=== PATIENT | male | born 1965 | race Caucasian/White ===

== ENCOUNTER 2022-06-04 16:24 | Outpatient (CLI) | payer OTHER, SELFPAY ==
[2022-06-04 19:53] LABS: Total Triiodothyronine (T3) 1.21 NG/ML (0.97-1.69)
== END 2022-06-04 16:25 | disposition home or self-care (01) ==
LOC: ANHGOSHLAB 16:25
PROVIDERS: PCP Family Medicine; Visit Provider Physician Assistant
DX: R79.89 Other specified abnormal findings of blood chemistry (principal)
CPT/HCPCS: 36415; 84436; 84480

== ENCOUNTER 2022-11-12 05:52 | Day surgery (SDC) | payer OTHER, SELFPAY ==
[2022-09-12 10:18] VITALS: BMI 25.5
[2022-10-30 10:55] VITALS: BMI 25.4
--- NOTE | 2022-10-30 11:10 | PC.NURSE ---
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 OFFERED FOR PT TO CALL BACK. PT REFUSED. PT ALSO DIDNT WRITE DOWN INSTRUCTIONS. OFFERED AGAIN TO CALL BACK, PT REFUSED. STATED HE WOULD REMEMBER VERBAL INSTRUCTIONS. ASKED PT IF HE RECEIVED COLON PREP INSTRUCTIONS FROM DR BRAR. PT SAID NO. INSTRUCTED PT TO CALL DR BRAR OFFICE TODAY FOR PREP INSTRUCTIONS. PT VERBALIZED UNDERSTANDING.
--- NOTE | 2022-11-09 11:56 | PM.HPGS ---
History of Present Illness History of Present Illness Consent: Risks, benefits, and alternatives have been discussed and questions answered. Patient agrees to proceed with procedure. Chief complaint: Neoplasm Screening Narrative: Chidi Ash is a 56 year old male who was referred for colonoscopy for screening. Review of Systems Review of Systems: All systems reviewed & are unremarkable except as noted in HPI and below PMFSH Social History Social History Smoking status: Never smoker Alcohol intake: unknown Substance use: unknown Living arrangements: alone Spiritual care concerns: No Meds Home Medications and Allergies Home Medications Medication Instructions Recorded Confirmed Type epinephrine 0.3 mg/0.3 mL 0.3 mg (0.3 mL) IM ONCE #2 ea 06/04/22 11/12/22 Rx injection, auto-injector (EpiPen 2-Liban) omeprazole 20 mg capsule,delayed 20 mg PO DAILY 10/30/22 11/12/22 History release Allergies Allergy/AdvReac Type Severity Reaction Status Date / Time BEE STINGS Allergy Mild HIVES, Uncoded 11/12/22 06:18 ANAPHYLAXIS Exam Const: General: alert Orientation/consciousness: patient oriented x3 Resp: Auscultation: clear to auscultation bilaterally Cardio: Rhythm: regular rhythm GI: GI Palp: Yes Soft to palpation and No Tenderness to palpation present (GI) Neuro: General: patient oriented x3 Assessment and Plan Assessment and plan (1) Colon cancer screening: Code(s): Z12.11 - Encounter for screening for malignant neoplasm of colon Status: Acute Assessment and Plan: Colonoscopy with possible biopsy or polypectomy or cautery or injection of substances.
[2022-11-12 06:10] VITALS: BP 158/109; PULSE 79; RESP 20; TEMP 36.8; O2SAT 100
[2022-11-12] MEDS: LACTATED RINGERS 1,000 ML 150 ML IV CONT (06:20)
--- NOTE | 2022-11-12 07:25 | P.PNAN_ITS ---
Anes - Initial Pre Proc Eval Procedure: Operation Date: 11/12/22 07:30 Proposed Procedures p Screening Colonoscopy - Kleber Robledo MD Date/Time: 11/12/22 07:25 Surgeon: Kleber Robledo MD Pre Op Diagnosis: Neoplasm Screening Patient Data Age: 56 Gender: M Height: 1.75 m Weight: 76.1 kg Allergies Allergy/AdvReac Type Severity Reaction Status Date / Time BEE STINGS Allergy Mild HIVES, Uncoded 11/12/22 06:18 ANAPHYLAXIS Home Medications Medication Instructions Recorded Confirmed Type epinephrine 0.3 mg/0.3 mL 0.3 mg (0.3 mL) IM ONCE #2 ea 06/04/22 11/12/22 Rx injection, auto-injector (EpiPen 2-Liban) omeprazole 20 mg capsule,delayed 20 mg PO DAILY 10/30/22 11/12/22 History release Patient hx anesthesia problems: none Family hx anesthesia problems: none Results Review: All pre-operative results and documents have been reviewed as part of the pre- operative evaluation. [facility] Social History Social History Smoking status: Never smoker Alcohol intake: unknown Substance use: unknown Living arrangements: alone Spiritual care concerns: No Anes - Eval Final PreProcedure Day of Procedure 11/12/22 07:25 Patient weight: normal Heart: regular rate and rhythm Lungs: clear to auscultation Airway: Mallampati scale class II Neurological: alert and oriented Last oral intake: >/= 8 hours ASA classification: II Emergent: no Anesthetic plan: proceed Anesthesia type and monitoring: general GIVS and standard monitoring Results Review: All pre-operative results and documents have been reviewed as part of the pre- operative evaluation. Informed Consent: The patient's anesthetic plan and its attendant risks and benefits were discussed with the patient/family/POA. Questions were solicited and answers provided to the satisfaction of the patient/family/POA.
[2022-11-12 07:49] VITALS: BP 132/99; PULSE 66; RESP 14; O2SAT 98
[2022-11-12 07:59] VITALS: BP 130/109; PULSE 65; RESP 16; O2SAT 99
[2022-11-12 08:09] VITALS: BP 159/102; PULSE 63; RESP 18; O2SAT 100
--- NOTE | 2022-11-12 12:23 | WPDANESPN ---
Anes - Prog Note Post-Op Date/Time: 11/12/22 12:23 Cardiovascular status: normal Respiratory status: normal Airway patency: baseline Mental status: baseline Post-Op hydration status: normal Vital Signs: Last Vital Signs Temp 36.8 C 11/12/22 06:10 Pulse 63 11/12/22 08:09 Resp 18 11/12/22 08:09 BP 159/102 H 11/12/22 08:09 Pulse Ox 100 11/12/22 08:09 O2 Del Method Room Air 11/12/22 08:09 Pain Score (VAS): 0 I/O: Intake & Output 11/11/22 11/12/22 11/12/22 23:59 07:59 15:59 Intake Total 500 0 Balance 500 0 Patient Feedback: Patient satisfied with anesthetic care.
== END 2022-11-12 08:31 | disposition home or self-care (01) ==
PROVIDERS: PCP Family Medicine; Visit Provider Internal Medicine Gastroenterology
PROC: 0DJD8ZZ Inspection of Lower Intestinal Tract, Via Natural or Artificial Opening Endoscopic (ICD-10-PCS; CPT 45378; principal; 2022-11-12 07:30)
DX: Z12.11 Encounter for screening for malignant neoplasm of colon (principal)
CPT/HCPCS: 45378